=== PATIENT | male | born 1975 | race African-American/Black ===

== ENCOUNTER 2017-12-02 15:03 | Emergency (ER) | payer OTHER ==
[~2017-12-02] VITALS: Ht 177.8 cm; Wt 88.0 kg
[~2017-12-02 15:03] MED LIST: CATAPRES-TTS 21 EACH TD; CLONIDINE1 EAC1 TD; DEPAKOTE125 MG; NIFEDIPINE10 MG PO; NO HOME MEDS; PRILOSEC20 MG PO; ZOFRAN4 MG PO; ZOLOFT25 MG; ZOLOFT50 MG PO
[2017-12-02] MEDS ORDERED: DEPAKOTE500 MG PO (15:27)
[2017-12-02 15:49] LABS: HEMATOCRIT 42.5 % (38.0-50.0); HEMOGLOBIN 13.7 G/DL (12.5-16.6); MCHC 32.2 G/DL (30.0-36.0); MCV 77.6 FL (86-99); PLATELET COUNT 242 K/uL (156-360); RBC DIS.WIDTH-CV 14.1 % (11.8-14.6); RBC DIS.WIDTH-SD 39.3 % (39-53); RED BLOOD COUNT 5.48 M/uL (4.00-5.50)
[2017-12-02 16:04] LABS: ALBUMIN 4.3 g/dL (3.2-4.8)
[2017-12-02 16:05] LABS: CHLORIDE 109 mEq/L (99-109); POTASSIUM 3.8 mEq/L (3.7-5.4); SODIUM 143 mEq/L (136-147)
[2017-12-02 16:07] LABS: GLUCOSE 96 mg/dL (70-99); TOTAL PROTEIN 7.2 g/dL (6.4-8.3)
[2017-12-02 16:09] LABS: TOTAL BILIRUBIN 0.3 mg/dL (0.0-1.0)
[2017-12-02 16:10] LABS: ALKALINE PHOSPHATASE 69 IU/L (3-129)
[2017-12-02 16:11] LABS: CREATININE 1.2 mg/dL (0.6-1.3); GFR ESTIMATE (CALCULATED) > 59 mL/min/ (58.99-99999)
[2017-12-02 16:12] LABS: AST (GOT) 37 IU/L (2-34); UREA NITROGEN (BUN) 13 mg/dL (9-23)
[2017-12-02 16:13] LABS: ALT (GPT) 30 IU/L (3-49)
[2017-12-02 16:41] VITALS: BP 110/72
== END 2017-12-02 16:47 | disposition home or self-care (01) ==
LOC: EME 15:03
PROVIDERS: Emergency Medicine Emergency Medical Services
DX: F10.129 Alcohol abuse with intoxication, unspecified (principal); R56.9 Unspecified convulsions; R41.82 Altered mental status, unspecified; F32.9 Major depressive disorder, single episode, unspecified; I10 Essential (primary) hypertension
CPT/HCPCS: 80053; 85027; 99281; 99285

== ENCOUNTER 2018-03-09 17:20 | Emergency (ER) | payer OTHER ==
[~2018-03-09] VITALS: Ht 177.8 cm; Wt 95.5 kg
[~2018-03-09 17:20] MED LIST changes: +DEPAKOTE500 MG PO
[2018-03-09 17:48] LABS: BASOPHIL (%) 0.6 % (0-1); BASOPHIL COUNT 0.1 K/uL (0-0.1); EOSINOPHIL (%) 0.9 % (0-5); EOSINOPHIL COUNT 0.1 K/uL (0-0.3); HEMATOCRIT 42.5 % (38.0-50.0); HEMOGLOBIN 13.6 G/DL (12.5-16.6); IMMATURE GRANULOCYTE (%) 0.2 % (0.0-0.7); LYMPHOCYTE (%) 33.8 % (15-42); MCH 24.4 PG (29.0-34.0); MCV 76.3 FL (86-99); MONOCYTE (%) 4.3 % (3-12); MONOCYTE COUNT 0.4 K/uL (0-0.8); NEUTROPHIL (%) 60.2 % (45-76); NEUTROPHIL COUNT 5.4 K/uL (1.8-6.4); PLATELET COUNT 240 K/uL (156-360); RBC DIS.WIDTH-CV 14.4 % (11.8-14.6); RED BLOOD COUNT 5.57 M/uL (4.00-5.50)
[2018-03-09 17:56] LABS: ALBUMIN 4.7 g/dL (3.2-4.8); CHLORIDE 111 mEq/L (99-109); POTASSIUM 3.8 mEq/L (3.7-5.4); SODIUM 143 mEq/L (136-147)
[2018-03-09 17:59] LABS: GLUCOSE 101 mg/dL (70-99); TOTAL PROTEIN 7.8 g/dL (6.4-8.3)
[2018-03-09 18:01] LABS: TOTAL BILIRUBIN 0.3 mg/dL (0.0-1.0)
[2018-03-09 18:02] LABS: ALKALINE PHOSPHATASE 62 IU/L (3-129); SERUM ETHYL ALCOHOL 324 mg/dL
[2018-03-09 18:03] LABS: CREATININE 1.1 mg/dL (0.6-1.3); GFR ESTIMATE (CALCULATED) > 59 mL/min/ (58.99-99999)
[2018-03-09 18:04] LABS: AST (GOT) 36 IU/L (2-34); UREA NITROGEN (BUN) 14 mg/dL (9-23)
[2018-03-09 18:06] LABS: ALT (GPT) 32 IU/L (3-49)
[2018-03-09 18:10] LABS: APPEARANCE CLEAR ((CLEAR)); BILIRUBIN NEGATIVE; BLOOD NEGATIVE; COLOR COLORLESS ((YELLOW)); GLUCOSE (STRIP) NEGATIVE; KETONES NEGATIVE; LEUKOCYTES NEGATIVE; NITRITE NEGATIVE; PROTEIN (STRIP) NEGATIVE; SPECIFIC GRAVITY 1.003 (1.000-1.030); UCUL ADDED? NO; UROBILINOGEN 0.2 MG/DL (0.2-1.0)
[2018-03-09 18:19] LABS: AMPHETAMINE NEGATIVE (500 ng/mL); BARBITURATES NEGATIVE (200 ng/mL); BENZODIAZEPINES NEGATIVE (150 ng/mL); BUPRENORPHINE NEGATIVE (10 ng/mL); COCAINE NEGATIVE (150 ng/mL); METHADONE NEGATIVE (200 ng/mL); METHAMPHETAMINE NEGATIVE (500 ng/mL); OPIATES (MORPHINE) NEGATIVE (100 ng/mL); OXYCODONE NEGATIVE (100 ng/mL); PHENCYCLIDINE NEGATIVE (25 ng/mL); PROPOXYPHENE NEGATIVE (300 ng/mL); THC CANNABINOIDS NEGATIVE (50 ng/mL); TRICYCLIC ANTIDEPRESSANTS NEGATIVE (300 ng/mL)
[2018-03-10 01:41] VITALS: BP 118/73
== END 2018-03-10 01:42 | disposition home or self-care (01) ==
LOC: EME 17:20
PROVIDERS: Emergency Medicine
DX: F10.129 Alcohol abuse with intoxication, unspecified (principal); I10 Essential (primary) hypertension; F43.10 Post-traumatic stress disorder, unspecified; F32.9 Major depressive disorder, single episode, unspecified; F20.9 Schizophrenia, unspecified; Y90.8 Blood alcohol level of 240 mg/100 ml or more; Z87.19 Personal history of other diseases of the digestive system; Z91.018 Allergy to other foods
CPT/HCPCS: 80053; 81003; 85025; 99281; 99285; G0480